=== PATIENT | female | born 1990 | race Caucasian/White ===

== ENCOUNTER 2017-10-16 19:08 | Emergency (ER) | payer MEDICAID, OTHER ==
[~2017-10-16] VITALS: Ht 162.6 cm; Wt 55.0 kg
[2017-10-16] MEDS ORDERED: ONDANSETRON HCL 4MG/2ML VIAL IV STA (19:46)
[2017-10-16] MEDS ORDERED: SODIUM CHLORIDE 0.9% 1,000 ML IV ONE (19:46)
[2017-10-16 20:33] LABS: BASOPHILS % 0.2 % (0.0-2.0); HEMATOCRIT. 36.2 % (36.0-48.0); HEMOGLOBIN. 12.1 g/dL (12.0-16.0); LYMPHOCYTES % 13.2 % (20.0-50.0); MEAN CORPUSCULAR HEMOGLOBIN 29.5 pg (28.0-32.0); MEAN CORPUSCULAR VOLUME 88.2 fL (81.0-99.0); MEAN PLATELET VOLUME 8.5 fl (7.4-10.4); MONOCYTES % 4.3 % (2.0-8.0); NEUTROPHILS % 81.3 % (40.0-76.0); PLATELET 215 x1000/uL (130-400); RED BLOOD CELL COUNT 4.11 mill/uL (4.2-5.4); RED CELL DISTRIBUTION WIDTH 12.7 % (11.6-14.6)
[2017-10-16 20:36] LABS: CHLORIDE 103 mEq/L (98-107); INR 1.1; PROTHROMBIN TIME 11.1 sec (9.4-11.6)
[2017-10-16 20:41] LABS: ETHANOL BLOOD < 10 mg/dL
[2017-10-16 20:45] LABS: CREATINE KINASE 53 IU/L (26-192)
[2017-10-16 20:46] LABS: HCG SCREEN NEGATIVE
[2017-10-16 20:47] LABS: TROPONIN I < 0.02 ng/mL (0.00-0.04)
[2017-10-16 21:21] LABS: CLARITY URINE CLEAR (CLEAR); COLOR URINE YELLOW (YELLOW); KETONES URINE NEGATIVE (NEGATIVE); LEUKOCYTE ESTERASE URINE NEGATIVE (NEGATIVE); NITRITE URINE NEGATIVE (NEGATIVE); OCCULT BLOOD URINE NEGATIVE (NEGATIVE); PROTEIN URINE 1+ (NEGATIVE); SPECIFIC GRAVITY URINE 1.014 (1.005-1.030)
[2017-10-16 21:34] LABS: *BARBITURATES SCREEN URINE NEGATIVE (NEGATIVE); *BENZODIAZEPINES SCREEN URINE NEGATIVE (NEGATIVE); *COCAINE SCREEN URINE NEGATIVE (NEGATIVE); CANNABINOID URINE SCREEN NEGATIVE (NEGATIVE); METHADONE URINE SCREEN NEGATIVE (NEGATIVE); PHENCYCLIDINE URINE SCREEN NEGATIVE (NEGATIVE)
[2017-10-16 21:37] LABS: *AMPHETAMINES SCREEN URINE PRESUMTIVE POSITIVE (NEGATIVE); OPIATES URINE SCREEN PRESUMTIVE POSITIVE (NEGATIVE)
[2017-10-16 23:12] VITALS: BP 102/55
== END 2017-10-16 23:31 | disposition home or self-care (01) ==
LOC: ER 19:10
DX: T40.5X1A Poisoning by cocaine, accidental (unintentional), initial encounter (principal); G92 Toxic encephalopathy; F14.10 Cocaine abuse, uncomplicated; Z88.0 Allergy status to penicillin; Z88.2 Allergy status to sulfonamides; Y92.89 Other specified places as the place of occurrence of the external cause
CPT/HCPCS: 36415; 70450; 80053; 80305; 81003; 82550; 84443; 84484; 84703; 85025; 85610; 93005; 96361; 96374; 99285; G0482; J2405; J7030

== ENCOUNTER 2019-06-28 12:17 | Inpatient (IN) | payer OTHER, MEDICAID ==
[~2019-06-28] VITALS: Ht 165.1 cm; Wt 52.6 kg
[2019-06-28] MEDS ORDERED: MORPHINE SULFATE 4 MG/ML CPJ (NOT FOR IM USE) IV STA (13:47)
[2019-06-28] MEDS ORDERED: CLINDAMYCIN 600 MG in DEXTROSE 5% WATER 50 ML IV ONE (14:00)
[2019-06-28] MEDS ORDERED: SODIUM CHLORIDE 0.9% 1000ML BAG (SEPSIS BOLUS) IV ONE (14:00)
[2019-06-28] MEDS ORDERED: VANCOMYCIN 1 G PREMIX 200 ML IV ONE (14:00)
[2019-06-28 14:33] LABS: BASOPHILS % 0.5 % (0.0-2.0); HEMATOCRIT. 35.5 % (36.0-48.0); HEMOGLOBIN. 11.6 g/dL (12.0-16.0); LYMPHOCYTES % 15.1 % (20.0-50.0); MEAN CORPUSCULAR HEMOGLOBIN 27.9 pg (28.0-32.0); MEAN CORPUSCULAR VOLUME 85.3 fL (81.0-99.0); MEAN PLATELET VOLUME 7.5 fl (7.4-10.4); NEUTROPHILS % 77.4 % (40.0-76.0); PLATELET 400 x1000/uL (130-400); RED BLOOD CELL COUNT 4.16 mill/uL (4.2-5.4); RED CELL DISTRIBUTION WIDTH 13.9 % (11.6-14.6)
[2019-06-28 14:37] LABS: CHLORIDE 105 mEq/L (98-107)
[2019-06-28 14:38] LABS: PROTHROMBIN TIME 10.5 sec (9.6-11.0)
[2019-06-28 14:39] LABS: CLARITY URINE CLEAR (CLEAR); COLOR URINE YELLOW (YELLOW); KETONES URINE NEGATIVE (NEGATIVE); LEUKOCYTE ESTERASE URINE TRACE (NEGATIVE); NITRITE URINE NEGATIVE (NEGATIVE); OCCULT BLOOD URINE NEGATIVE (NEGATIVE); PH URINE 6.5 (4.5-8.0); PROTEIN URINE NEGATIVE (NEGATIVE); UROBILINOGEN URINE 0.2 E.U./dL (0.2-1.0)
[2019-06-28] MEDS ORDERED: LIDOCAINE HCL/EPINEPHRINE 1%-EPI 1:100,000 30 ML VIAL INFIL ONE (15:30)
[2019-06-28] MEDS ORDERED: CLINDAMYCIN 600MG PREMIX 50 ML IV SCH (15:30)
[2019-06-28] MEDS ORDERED: MORPHINE SULFATE 4 MG/ML CPJ (NOT FOR IM USE) IV ONE (16:15)
[2019-06-28 17:14] VITALS: BP 123/79
[2019-06-28] MEDS: MORPHINE SULFATE 2 MG/ML CPJ (NOT FOR IM USE) IV PRN (17:32)
[2019-06-28 18:06] VITALS: BP 124/75
[2019-06-28] MEDS: ACETAMINOPHEN 650MG/20.3ML UDC PO PRN (18:18)
[2019-06-28 20:00] VITALS: BP 119/61
[2019-06-28] MEDS: VANCOMYCIN 750 MG PREMIX 150 ML IV SCH (21:22)
[2019-06-29] VITALS: BP 120/70
[2019-06-29 04:00] VITALS: BP 111/65
[2019-06-29] MEDS: VANCOMYCIN 750 MG PREMIX 150 ML IV SCH ×3 (04:33→20:32)
[2019-06-29 07:11] LABS: BASOPHILS % 0.5 % (0.0-2.0); EOSINOPHILS % 0.6 % (0.0-5.0); HEMATOCRIT. 29.9 % (36.0-48.0); HEMOGLOBIN. 9.7 g/dL (12.0-16.0); LYMPHOCYTES % 14.5 % (20.0-50.0); MEAN CORPUSCULAR HEMOGLOBIN 27.6 pg (28.0-32.0); MEAN CORPUSCULAR VOLUME 84.9 fL (81.0-99.0); MEAN PLATELET VOLUME 7.6 fl (7.4-10.4); NEUTROPHILS % 78.4 % (40.0-76.0); PLATELET 351 x1000/uL (130-400); RED BLOOD CELL COUNT 3.52 mill/uL (4.2-5.4); RED CELL DISTRIBUTION WIDTH 13.6 % (11.6-14.6)
[2019-06-29 07:25] LABS: CHLORIDE 103 mEq/L (98-107)
[2019-06-29] MEDS ORDERED: BUPIVACAINE HCL 0.5% (5MG/ML) 50ML ONE (07:43)
[2019-06-29] MEDS ORDERED: SKIN ADHESIVE 0.7 GM EA TOP ONE (07:43)
[2019-06-29 08:00] VITALS: BP 130/77
[2019-06-29] MEDS ORDERED: ROPIVACAINE HCL 10MG/ML 20 ML VIAL EPI ONE (08:33)
[2019-06-29] MEDS ORDERED: ONDANSETRON HCL 4MG/2ML INJ ONE (08:40)
[2019-06-29] MEDS ORDERED: GLYCOPYRROLATE 0.2 MG/ML 2ML VIAL ONE (08:40)
[2019-06-29] MEDS ORDERED: METOCLOPRAMIDE HCL 10MG/2ML VIAL ONE (08:40)
[2019-06-29] MEDS ORDERED: FENTANYL CITRATE/PF 50MCG/ML 2ML VIAL ONE (08:40)
[2019-06-29] MEDS ORDERED: SUCCINYLCHOLINE CHLORIDE 200MG/10ML IV ONE (08:40)
[2019-06-29] MEDS ORDERED: MIDAZOLAM HCL 2 MG/2 ML VIAL ONE (08:40)
[2019-06-29] MEDS ORDERED: PROPOFOL 200MG/20ML VIAL IV ONE (08:40)
[2019-06-29] MEDS ORDERED: LIDOCAINE HCL/PF 1% 10 MG/ML 5ML VIAL ONE (08:40)
[2019-06-29 08:48] LABS: HCG SCREEN NEGATIVE
[2019-06-29] MEDS ORDERED: MEPERIDINE HCL/PF 25MG/ML CPJ IV PRN ×2 (09:30)
[2019-06-29] MEDS ORDERED: HYDROMORPHONE HCL/PF 2MG/ML CPJ IV PRN (09:30)
[2019-06-29] MEDS ORDERED: ONDANSETRON HCL 4MG/2ML INJ IV PRN (09:30)
[2019-06-29] MEDS ORDERED: MORPHINE SULFATE 2 MG/ML CPJ (NOT FOR IM USE) IV PRN (09:30)
[2019-06-29] MEDS ORDERED: SODIUM CHLORIDE 0.9% 1,000 ML IV ONE (10:00)
[2019-06-29 12:00] VITALS: BP 105/62
[2019-06-29 16:00] VITALS: BP 108/65
[2019-06-29 20:35] VITALS: BP 103/54
[2019-06-29] MEDS: HYDROCODONE/ACETAMINOPHEN 5/325MG TABLET PO PRN (23:34)
[2019-06-30] VITALS: BP 113/68
[2019-06-30] MEDS ORDERED: TETANUS AND DIPHTHERIA TOX/PF 0.5ML SYR (ADULT) IM ONE
[2019-06-30 02:39] LABS: CHLORIDE 105 mEq/L (98-107)
[2019-06-30 02:47] LABS: VANCOMYCIN TROUGH 13.3 ug/mL (5.0-10.0)
[2019-06-30 04:00] VITALS: BP 99/57
[2019-06-30] MEDS: VANCOMYCIN 750 MG PREMIX 150 ML IV SCH ×2 (04:30→11:13)
[2019-06-30] MEDS: MORPHINE SULFATE 2 MG/ML CPJ (NOT FOR IM USE) IV PRN (06:45)
[2019-06-30 06:54] LABS: BASOPHILS % 0.8 % (0.0-2.0); EOSINOPHILS % 1.2 % (0.0-5.0); HEMATOCRIT. 31.5 % (36.0-48.0); HEMOGLOBIN. 10.4 g/dL (12.0-16.0); LYMPHOCYTES % 25.6 % (20.0-50.0); MEAN CORPUSCULAR VOLUME 84.9 fL (81.0-99.0); MEAN PLATELET VOLUME 7.4 fl (7.4-10.4); MONOCYTES % 5.8 % (2.0-8.0); NEUTROPHILS % 66.6 % (40.0-76.0); PLATELET 381 x1000/uL (130-400); RED BLOOD CELL COUNT 3.71 mill/uL (4.2-5.4); RED CELL DISTRIBUTION WIDTH 13.7 % (11.6-14.6)
[2019-06-30 07:03] LABS: CHLORIDE 107 mEq/L (98-107)
[2019-06-30 08:00] VITALS: BP 117/54
[2019-06-30] MEDS: ACETAMINOPHEN 650MG/20.3ML UDC PO PRN ×2 (08:31→18:44)
[2019-06-30 12:00] VITALS: BP 114/63
[2019-06-30] MEDS: NICOTINE 21MG PATCH TD SCH (13:16)
[2019-06-30 16:00] VITALS: BP 110/64
[2019-06-30] MEDS: VANCOMYCIN 1 G PREMIX 200 ML IV SCH (16:20)
[2019-06-30 20:00] VITALS: BP_SYST 114; BP_SYST 120; BP_DIAS 58; BP_DIAS 61
[2019-07-01] MEDS: VANCOMYCIN 1 G PREMIX 200 ML IV SCH ×3 (00:47→16:29)
[2019-07-01 04:00] VITALS: BP 92/49
[2019-07-01 08:00] VITALS: BP 112/57
[2019-07-01] MEDS: NICOTINE 21MG PATCH TD SCH (08:52)
[2019-07-01] MEDS: HYDROCODONE/ACETAMINOPHEN 5/325MG TABLET PO PRN (08:53)
[2019-07-01 12:00] VITALS: BP 111/53
[2019-07-01 16:00] VITALS: BP 116/74
[2019-07-01] MEDS: MORPHINE SULFATE 2 MG/ML CPJ (NOT FOR IM USE) IV PRN (16:30)
[2019-07-01 20:00] VITALS: BP 115/63
[2019-07-01] MEDS: ACETAMINOPHEN 650MG/20.3ML UDC PO PRN (20:34)
[2019-07-02] VITALS: BP 103/58
[2019-07-02] MEDS: VANCOMYCIN 1 G PREMIX 200 ML IV SCH ×2 (02:29→08:36)
[2019-07-02 04:00] VITALS: BP 103/58
[2019-07-02 08:00] VITALS: BP 101/62
[2019-07-02] MEDS: NICOTINE 21MG PATCH TD SCH (08:36)
[2019-07-02] MEDS: HYDROCODONE/ACETAMINOPHEN 5/325MG TABLET PO PRN (09:14)
[2019-07-02 12:00] VITALS: BP 99/69
[2019-07-02] MEDS ORDERED: KETOROLAC 30MG/ML VIAL IV PRN (15:00)
[2019-07-02 16:00] VITALS: BP 114/56
[2019-07-02] MEDS: VANCOMYCIN 750 MG PREMIX 150 ML IV SCH (19:44)
[2019-07-02 20:00] VITALS: BP 104/63
[2019-07-02] MEDS: ACETAMINOPHEN 650MG/20.3ML UDC PO PRN (22:11)
[2019-07-03] VITALS: BP 107/56
[2019-07-03 04:00] VITALS: BP 101/50
[2019-07-03] MEDS: VANCOMYCIN 750 MG PREMIX 150 ML IV SCH ×2 (05:55→11:58)
[2019-07-03 07:16] LABS: CHLORIDE 107 mEq/L (98-107)
[2019-07-03] MEDS: NICOTINE 21MG PATCH TD SCH (09:17)
[2019-07-03] MEDS: ACETAMINOPHEN 650MG/20.3ML UDC PO PRN (12:39)
[2019-07-03] MEDS ORDERED: CEPH-569 MT (14:28)
[2019-07-03] MEDS ORDERED: PROB500T9 MT (14:28)
[2019-07-03] MEDS ORDERED: ZYV600 MT (14:48)
[2019-07-03] MEDS ORDERED: ONDANSETRON HCL 4MG/2ML INJ IV PRN (15:15)
[2019-07-03 15:44] VITALS: BP 101/50
[2019-07-03 16:00] VITALS: BP 109/71
[2019-07-03] MEDS ORDERED: VANCOMYCIN 750 MG PREMIX 150 ML IV SCH (22:00)
== END 2019-07-03 17:31 | disposition left against medical advice (07) | DRG 720 ==
LOC: ER 12:26 → 6EST 15:17 → ENRESERV 15:40
PROVIDERS: ADMIT Internal Medicine Nephrology; ATTEND Internal Medicine Nephrology
PROC: 0HBEXZZ Excision of Left Lower Arm Skin, External Approach (ICD-10-PCS; principal; 2019-06-29)
PROC: 0H9EXZZ Drainage of Left Lower Arm Skin, External Approach (ICD-10-PCS; 2019-06-29)
DX: A41.9 Sepsis, unspecified organism (principal); E43 Unspecified severe protein-calorie malnutrition; F12.90 Cannabis use, unspecified, uncomplicated; E11.9 Type 2 diabetes mellitus without complications; D64.9 Anemia, unspecified; F15.90 Other stimulant use, unspecified, uncomplicated; L02.414 Cutaneous abscess of left upper limb; F17.210 Nicotine dependence, cigarettes, uncomplicated; F19.10 Other psychoactive substance abuse, uncomplicated; L03.114 Cellulitis of left upper limb; J45.909 Unspecified asthma, uncomplicated; Z59.0 Homelessness; Z88.0 Allergy status to penicillin; Z88.2 Allergy status to sulfonamides; Z68.1 Body mass index [BMI] 19.9 or less, adult; Z71.51 Drug abuse counseling and surveillance of drug abuser; Z71.6 Tobacco abuse counseling
CPT/HCPCS: 36415; 71045; 80048; 80202; 81003; 82962; 83605; 84145; 84484; 84703; 87070; 87075; 87077; 88304; 90714; 93005; 93306; 96361; 96374; 96375; 99285; J0330; J2250; J2270; J2405; J2704; J2765; J2795; J3010; J3370; J3490; J7030; J7060

== ENCOUNTER 2020-03-20 18:54 | Emergency (ER) | payer OTHER, MEDICAID ==
[~2020-03-20] VITALS: Ht 167.6 cm; Wt 54.0 kg
[~2020-03-20 18:54] MED LIST: CEPH-569 MT; LINE600T11 MT; PROB500T9 MT
[2020-03-20] MEDS ORDERED: CLINDAMYCIN HCL 150MG CAPSULE PO ONE (19:30)
[2020-03-20] MEDS ORDERED: IBUPROFEN 600MG TABLET PO ONE (19:30)
[2020-03-20] MEDS ORDERED: LIDOCAINE 1%/EPI 1:100,000 10 ML VIAL IJ ONE (19:30)
[2020-03-20] MEDS ORDERED: DOXYCYCLINE HYCLATE 100MG CAPSULE PO ONE (19:45)
[2020-03-20] MEDS ORDERED: LIDOCAINE HCL/EPINEPHRINE 1%-EPI 1:100,000 20 ML VIAL ONE (19:57)
[2020-03-20] MEDS ORDERED: LIDOCAINE HCL/EPINEPHRINE 1%-EPI 1:100,000 20 ML VIAL INFIL SCH (20:05)
[2020-03-20 20:42] VITALS: BP 108/59
== END 2020-03-20 20:44 | disposition home or self-care (01) ==
LOC: ER 18:54
DX: L02.414 Cutaneous abscess of left upper limb (principal); F11.10 Opioid abuse, uncomplicated; F12.10 Cannabis abuse, uncomplicated; E11.9 Type 2 diabetes mellitus without complications; F15.10 Other stimulant abuse, uncomplicated; Z88.2 Allergy status to sulfonamides; Z88.0 Allergy status to penicillin
CPT/HCPCS: 10060; 87070; 87077; 87186; 87205; 99283; J3490

== ENCOUNTER 2021-08-24 09:01 | Emergency (ER) | payer OTHER, MEDICAID ==
[~2021-08-24] VITALS: Ht 165.1 cm; Wt 59.0 kg
[2021-08-24 12:58] LABS: BASOPHILS % 0.2 % (0.0-2.0); EOSINOPHILS % 0.2 % (0.0-5.0); HEMATOCRIT. 36.8 % (36.0-48.0); HEMOGLOBIN. 12.2 g/dL (12.0-16.0); LYMPHOCYTES % 11.5 % (20.0-50.0); MEAN CORPUSCULAR HEMOGLOBIN 28.2 pg (28.0-32.0); MEAN CORPUSCULAR VOLUME 84.9 fL (81.0-99.0); MEAN PLATELET VOLUME 7.6 fl (7.4-10.4); MONOCYTES % 4.9 % (2.0-8.0); NEUTROPHILS % 83.2 % (40.0-76.0); PLATELET 260 x1000/uL (130-400); RED BLOOD CELL COUNT 4.33 mill/uL (4.2-5.4); RED CELL DISTRIBUTION WIDTH 12.8 % (11.6-14.6)
[2021-08-24 13:14] LABS: CHLORIDE 107 mEq/L (98-107)
[2021-08-24 13:21] LABS: HCG SCREEN NEGATIVE
[2021-08-24 14:50] VITALS: BP 106/70
== END 2021-08-24 14:51 | disposition home or self-care (01) ==
LOC: ER 09:04
DX: T40.2X1A Poisoning by other opioids, accidental (unintentional), initial encounter (principal); X58.XXXA Exposure to other specified factors, initial encounter; J45.909 Unspecified asthma, uncomplicated; E11.9 Type 2 diabetes mellitus without complications; F17.290 Nicotine dependence, other tobacco product, uncomplicated; F12.10 Cannabis abuse, uncomplicated; F15.10 Other stimulant abuse, uncomplicated; Z88.0 Allergy status to penicillin
CPT/HCPCS: 36415; 80053; 84703; 85025; 99285

== ENCOUNTER 2021-10-27 21:08 | Emergency (ER) | payer MEDICAID, OTHER ==
[~2021-10-27] VITALS: Ht 165.1 cm; Wt 54.0 kg
[2021-10-27 21:34] VITALS: BP 105/70
[2021-10-27] MEDS ORDERED: NALO4SPR BOTHNSTRLS (22:28)
[2021-10-27] MEDS ORDERED: NALOXONE HCL 0.4 MG/ML 1ML VIAL IM ONE (22:30)
== END 2021-10-27 22:44 | disposition home or self-care (01) ==
LOC: ER 21:08
DX: T40.1X1A Poisoning by heroin, accidental (unintentional), initial encounter (principal); E11.9 Type 2 diabetes mellitus without complications; F12.10 Cannabis abuse, uncomplicated; F15.10 Other stimulant abuse, uncomplicated; Z88.2 Allergy status to sulfonamides; Z88.0 Allergy status to penicillin; Y92.488 Other paved roadways as the place of occurrence of the external cause
CPT/HCPCS: 99283; J2310